=== PATIENT | female | born 1970 | race Caucasian/White ===

== ENCOUNTER → 2016-09-06 | Outpatient (CLI) | payer BC ==
[2016-09-09 16:56] LABS: O&P GIARDIA AG NOT DETECTED (NOT DETECTED)
== END | disposition home or self-care (01) ==
LOC: C.LABSPEC 15:34
PROVIDERS: ATTEND Family Medicine
DX: R19.7 Diarrhea, unspecified (principal)

== ENCOUNTER → 2016-09-09 | Outpatient (CLI) | payer BC | END | disposition home or self-care (01) | LOC: C.PAPS 14:34 | PROVIDERS: ATTEND Obstetrics & Gynecology | DX: Z01.419 Encounter for gynecological examination (general) (routine) without abnormal findings (principal) ==

== ENCOUNTER → 2017-02-04 | Outpatient (CLI) | payer BC ==
--- NOTE | 2017-02-05 13:57 | MAMMOGRAPHY REPORT ---
BILATERAL DIGITAL SCREENING MAMMOGRAM TOMOSYNTHESIS WITH CAD: 02/04/2017 CLINICAL HISTORY: Routine screening. Patient has no complaints. TECHNIQUE: Breast tomosynthesis in addition to standard 2D mammography was performed. Current study was also evaluated with a Computer Aided Detection (CAD) system. COMPARISON: Comparison is made to exams dated: 02/04/2016 mammogram, 08/17/2014 mammogram, and 06/13/20 13 mammogram - [facility]. BREAST COMPOSITION: The tissue of both breasts is extremely dense, which lowers the sensitivity of m ammography. FINDINGS: Circumscribed masses diffusely scattered in both breasts are best appreciated on the tomos ynthesis images. There are punctate benign-appearing microcalcifications bilaterally, stable compare d to prior mammograms. No suspicious spiculated or irregular mass, architectural distortion or clust er of new, suspicious microcalcifications is seen. IMPRESSION: ACR BI-RADS CATEGORY 1: NEGATIVE There is no mammographic evidence of malignancy. A 1 year screening mammogram is recommended. The pa tient will receive written notification of the results. Approximately 10% of breast cancers are not detected with mammography. A negative mammographic report should not delay biopsy if a clinically suggestive mass is present. Catie Reyes M.D. ay/:02/04/2017 16:13:54 Tablet Machine Operator: Ania RAO(Edil)(Vanna)(BD), [facility] letter sent: Normal 1/2 BI-RADS Code: ACR BI-RADS Category 1: Negative
== END | disposition home or self-care (01) ==
LOC: C.MAMM 14:00
PROVIDERS: ATTEND Obstetrics & Gynecology
DX: Z12.31 Encounter for screening mammogram for malignant neoplasm of breast (principal)

== ENCOUNTER 2019-06-21 15:56 | Observation (INO) ==
[2019-06-21] MEDS ORDERED: SODIUM CHLORIDE 0.9% 1000ML 2,000 ML IV ONE (16:19)
[2019-06-21] MEDS ORDERED: ACETAMINOPHEN 325 MG TAB PO STA (16:19)
--- NOTE | 2019-06-21 16:33 | XRay Report ---
XR chest 1V portable CLINICAL HISTORY: 49 years-old Female presenting with SEPSIS. TECHNIQUE: Portable upright AP view of the chest was obtained. COMPARISON: None. FINDINGS: Cardiomediastinal silhouette normal. Retrocardiac opacity. No large effusion or pneumothorax. Osseous structures normal. Upper abdomen normal. IMPRESSION: 1. Retrocardiac infiltrate in the left lower lobe consistent with pneumonia. This should be followed to resolution to ensure the absence of an underlying neoplasm. ACT 112: Negative or not required by law. Electronically signed by: Arsh Piña M.D. 06/21/2019 4:32 PM
[2019-06-21 17:18] LABS: Basophils # (auto) 0.01 K/uL (0-0.2); Basophils % (auto) 0.1 %; Hematocrit (blood only) 37.4 % (37-47); Hemoglobin 11.9 g/dL (12.0-16.0); Immature Granulocytes # (auto) 0.03 K/uL (0.00-0.02); Immature Granulocytes % (auto) 0.2 %; Lymphocytes # (auto) 0.25 K/uL (1.2-3.4); Lymphocytes % (auto) 1.8 %; Mean Corpuscular Hemoglobin 24.5 pg (25-34); Mean Corpuscular Hgb Conc 31.8 g/dL (32-36); Mean Corpuscular Volume 77.1 fL (80-100); Mean Platelet Volume 11.1 fL (7.4-10.4); Monocytes # (auto) 0.41 K/uL (0.11-0.59); Monocytes % (auto) 2.9 %; Neutrophils # (auto) 13.42 K/uL (1.4-6.5); Platelet Count 153 K/uL (130-400); RDW Coefficient of Variation 13.6 % (11.5-14.5); RDW Standard Deviation 38.5 fL (36.4-46.3); Red Blood Count 4.85 M/uL (4.2-5.4); White Blood Count 14.12 K/uL (4.8-10.8)
[2019-06-21] MEDS ORDERED: cefTRIAXone SODIUM 1,000 MG/50 ML BAG IV STA (17:18)
[2019-06-21] MEDS ORDERED: AZITHROMYCIN 250 MG TAB PO ONE (17:18)
[2019-06-21 17:27] LABS: Partial Thromboplastin Ratio 0.9; Partial Thromboplastin Time 23.8 Seconds (21.0-31.0); Prothrombin Time 10.4 Seconds (9.0-12.0)
[2019-06-21 17:35] LABS: Alanine Aminotransferase 22 U/L (12-78); Albumin Level 3.2 gm/dl (3.4-5.0); Aspartate Aminotransferase 21 U/L (15-37); BUN Creatinine Ratio 10.7 (10-20); Blood Urea Nitrogen 12 mg/dl (7-18); Calcium 8.5 mg/dl (8.5-10.1); Carbon Dioxide 19 mmol/L (21-32); Chloride 106 mmol/L (98-107); Creatinine Clr Calc Pharmacy 74.7 ml/min; Est GFR (African American) 65.4; Est GFR (Non-African American) 56.4; Glucose 115 mg/dl (70-99); Magnesium 1.6 mg/dl (1.8-2.4); Potassium 3.9 mmol/L (3.5-5.1); Sodium 135 mmol/L (136-145)
[2019-06-21 17:51] LABS: Albumin Globulin Ratio 0.9 (0.9-2); Alkaline Phosphatase 50 U/L (45-117); Bilirubin,Total 0.5 mg/dl (0.2-1); Globulin 3.6 gm/dl (2.5-4.0); Total Protein 6.8 gm/dl (6.4-8.2); Troponin I < 0.015 ng/ml (0-0.045)
[2019-06-21 18:23] LABS: Appearance Urine Clear (Clear); Bilirubin Urine Negative (Negative); Blood Urine Negative (Negative); Color Urine Yellow; Glucose Urine UA Negative (Negative); Ketones Urine Negative (Negative); Leukocyte Esterase Urine Negative (Negative); Nitrite Urine Negative (Negative); Protein Urine Negative (Negative); Specific Gravity Urine 1.007 (1.000-1.030); Urobilinogen Urine Negative (Negative); pH Urine 5.5 (4.5-7.5)
[2019-06-21] MEDS ORDERED: SODIUM CHLORIDE 0.9% 1000ML 1,000 ML IV ONE (19:44)
--- NOTE | 2019-06-21 20:29 | CT Scan Report ---
CT chest wo con CT DOSE: 282.36 mGy.cm HISTORY: Pain ? pna vs ca TECHNIQUE: Multiaxial CT images of the chest were performed without contrast. A dose lowering techni que was utilized adhering to the principles of ALARA. COMPARISON: Chest series 06/21/2019 FINDINGS: 8 x 10 cm consolidative process left retrocardiac and left lower lobe region. Diagnostic co nsiderations include primarily consolidative infiltrate, although this should be followed to exclude an underlying central obstructing process. Lungs otherwise appear clear. There is minimal atelectatic change right posterior costophrenic angle. No significant mediastinal or hilar adenopathy. Potential minimal infiltrative process right hilar/pe rihilar region. IMPRESSION: 1. Consolidative left lower lobe infiltrate versus the possibility of an underlying mass lesion. 2. Follow-up CT study should be performed at a later date following appropriate treatment. 3. Minimal atelectasis right base. 4. Potential small superimposed infiltrative process right perihilar region ACT 112: Negative or not required by law. The above report was generated using voice recognition software. It may contain grammatical, syntax or spelling errors. Electronically signed by: Ephraim Alfonso M.D. 06/21/2019 8:28 PM
--- NOTE | 2019-06-21 20:38 | Emergency Department Note ---
Entered by Clarissa Pelayo acting as a scribe for Phil Hernandez DO History of Present Illness General Chief complaint: Hypotension Stated complaint: FEVER, LOW BP, ELEVATED PULSE Source: patient History of Present Illness Provider complaint: flu-like symptoms Onset (ago): day(s) 5 Location: left and right Maximum Pain Intensity: 7 Quality: + other (flu-like symptoms) Associated symptoms: + cough, + fever/chills and + other (Positive throat pain; Positive tachycardia; Positive ear pressure; Negative rhinoorhea; Negative dysuria;); no chest pain and no nausea/vomiting Treatments prior to arrival: other (Ibuprofen) The patient, who is a 49 year old female with a medical history of influenza, presents to the Emergency Room with complaints of worsening flu-like symptoms that started this five days ago. The patient states that she was recently marie gnosed with Flu A at a walk in clinic and was given Tamiflu. The patient states that during the onset of her symptoms she started with a fever, chills and cough with no production. The patient states that throughout its course, her fever was intermittent. The patient informs that she is currently experiencing a fever of 104.5 which restarted in the past 24 hours, a cough with production, tachycard ia, throat pain, shortness of breath, and pressure in both of her ears. The patient denies chest pain, rhinorrhea, nausea, vomiting, or dysuria. The patient reports taking an Ibuprofen at 1400. Patient was evaluated by her PCP and referred in as she was found to be hypotensive with systolic pressures in the 80s febrile and tachycardic. Home Medications Home Medications Medication Instructions Recorded Confirmed Type oseltamivir 75 mg PO BID 06/21/19 06/21/19 History Allergies Allergy/AdvReac Type Severity Reaction Status Date / Time Cipro Allergy Severe SHORTNESS Verified 12/14/12 11:10 OF BREATH ciprofloxacin Allergy Severe SHORTNESS Verified 06/21/19 19:07 OF BREATH Iodinated Contrast Media AdvReac Mild DIARRHEA Verified 06/21/19 19:07 Past Med/Surg History Medical History Breast lump Dysmenorrhea History of abnormal cervical Papanicolaou smear Menorrhagia Varicella Surgical History History of ankle surgery History of cryosurgery cervix Family History Grandmother (Maternal) Breast cancer Social History marital status: Feels Safe at Home: Yes Smoking Status: Never smoker Review of Systems See HPI for pertinent positives & negatives. and A total of 10 systems reviewed and were otherwise negative Physical Exam Vital Signs Vital Signs - 24 hr 06/21/19 16:06 06/21/19 16:49 06/21/19 17:02 Temperature 38.1 C H Temperature Source Oral Pulse Rate 122 H 107 H Pulse Rate from SpO2 Sensor 107 H Pulse Rhythm Regular Respiratory Rate 20 17 Respiratory Effort / Characteristics Non-Labored Spontaneous Respiratory Depth Normal Respiratory Pattern Regular Blood Pressure 100/61 109/58 L Blood Pressure Mean 74 74 Blood Pressure Position Sitting Pulse Oximetry 94 96 96 Oxygen Delivery Method Room Air Room Air Sepsis Recent Fever Within 48 Hours Yes Sepsis New/Unexplained Change in Mental Status Yes Sepsis Action Taken by Nursing No Action Required 06/21/19 17:15 06/21/19 17:30 06/21/19 17:45 Temperature Temperature Source Pulse Rate 109 H 104 H 97 H Pulse Rate from SpO2 Sensor 109 H 103 H 98 H Pulse Rhythm Respiratory Rate 18 16 19 Respiratory Effort / Characteristics Respiratory Depth Respiratory Pattern Blood Pressure 123/70 105/62 111/58 L Blood Pressure Mean 89 74 73 Blood Pressure Position Pulse Oximetry 97 96 98 Oxygen Delivery Method Room Air Sepsis Recent Fever Within 48 Hours Sepsis New/Unexplained Change in Mental Status Sepsis Action Taken by Nursing 06/21/19 18:00 06/21/19 18:15 06/21/19 18:30 Temperature Temperature Source Pulse Rate 102 H 103 H 103 H Pulse Rate from SpO2 Sensor 103 H 104 H 105 H Pulse Rhythm Respiratory Rate 22 25 H 20 Respiratory Effort / Characteristics Respiratory Depth Respiratory Pattern Blood Pressure 103/65 113/63 Blood Pressure Mean 73 72 Blood Pressure Position Pulse Oximetry 99 97 97 Oxygen Delivery Method Room Air Sepsis Recent Fever Within 48 Hours Sepsis New/Unexplained Change in Mental Status Sepsis Action Taken by Nursing 06/21/19 18:45 06/21/19 19:00 Temperature Temperature Source Pulse Rate 111 H 101 H Pulse Rate from SpO2 Sensor 101 H Pulse Rhythm Respiratory Rate 19 28 H Respiratory Effort / Characteristics Respiratory Depth Respiratory Pattern Blood Pressure Blood Pressure Mean Blood Pressure Position Pulse Oximetry 95 Oxygen Delivery Method Room Air Room Air Sepsis Recent Fever Within 48 Hours Sepsis New/Unexplained Change in Mental Status Sepsis Action Taken by Nursing GENERAL: alert, sitting up in bed, intermittent cough, talking in full sentences EYE EXAM: normal conjunctiva, OROPHARYNX: no exudate, no erythema, lips, buccal mucosa, and tongue normal and mucous membranes are dry NECK: supple, no nuchal rigidity, no adenopathy, non-tender LUNGS: Mild wheezing in bilateral bases. Normal chest wall mechanics HEART: no murmurs, S1 normal and S2 normal, tachycardic ABDOMEN: abdomen soft, non-tender, normo-active bowel sounds, no masses, no rebound or guarding. BACK: Back is symmetrical on inspection and there is no deformity, no midline tenderness, no CVA tenderness. SKIN: no rashes and no bruising UPPER EXTREMITIES: upper extremities are grossly normal. LOWER EXTREMITIES: No pitting edema. NEURO EXAM: Normal sensorium, cranial nerves II-XII grossly intact, normal speech, no gross weakness of arms, no gross weakness of legs. Course Course ED COURSE: Vital signs were reviewed and showed normotensive The patients medical record was reviewed The above diagnostic studies were performed and reviewed. ED treatments and interventions as stated above. 1614: The patient was evaluated in room C3. A complete history and physical examination was performed. 9: I reassessed the patient and updated them on their results. 6: I reviewed the patient's case with Dr. Arzola, [facility] Hospitalist. He will evaluate the patient for further management. 1940: Upon reevaluation, the patient is resting.I discussed my findings with the patient and she understands and agrees with the treatment plan. Based on the patients age, coexisting illnesses, exam and lab findings the decision to treat as an inpatient was made. The patient remained stable while under my care. The patient will be evaluated for further management. Consultations Consultation #1: I reviewed the patient's case with Dr. Arzola, [facility] Hospitalist. He will evaluate the patient for further management. Time: 19:36 Administered Medications Discontinued Medications Acetaminophen (Tylenol) 650 mg PO NOW STA Stop: 06/21/19 16:20 Last Admin: 06/21/19 16:59 Dose: 650 mg Documented by: [id number] Azithromycin (Zithromax) 500 mg PO NOW ONE Stop: 06/21/19 17:19 Last Admin: 06/21/19 17:27 Dose: 500 mg Documented by: [id number] Sodium Chloride (Nss 1000ml) 2,000 mls @ 999 mls/hr IV .Q2H1M ONE Stop: 06/21/19 18:19 Last Infusion: 06/21/19 19:01 Dose: 0 mls/hr Documented by: [id number] Admin: 06/21/19 16:59 Dose: 999 mls/hr Documented by: [id number] Ceftriaxone Sodium (Rocephin) 1,000 mg in 50 mls @ 100 mls/hr IV NOW STA Stop: 06/21/19 17:47 Last Infusion: 06/21/19 18:02 Dose: 0 mls/hr Documented by: [id number] Admin: 06/21/19 17:28 Dose: 100 mls/hr Documented by: [id number] Medical Decision Making Differential Diagnosis Differential diagnoses includes but is not limited to acute coronary syndrome, myocardial infarction, pericarditis, pulmonary embolus, aortic dissection, pneumonia, pneumothorax, musculoskeletal, shingles, esophageal. Medical Records Attestation: I reviewed the patient's medical records. Home Medications Current Medication List: was personally reviewed by me Laboratory Data Attestation: I reviewed the patient's lab results. Result diagrams: 06/21/19 16:57 06/21/19 16:57 Lab Results 06/21/19 06/21/19 06/21/19 Range/Units 16:57 16:57 16:57 WBC 14.12 H (4.8-10.8) K/uL RBC 4.85 (4.2-5.4) M/uL Hgb 11.9 L (12.0-16.0) g/dL Hct 37.4 (37-47) % MCV 77.1 L (80-100) fL MCH 24.5 L (25-34) pg MCHC 31.8 L (32-36) g/dL RDW Std Deviation 38.5 (36.4-46.3) fL RDW Coeff of Bladimir 13.6 (11.5-14.5) % Plt Count 153 (130-400) K/uL MPV 11.1 H (7.4-10.4) fL Immature Gran % (Auto) 0.2 % Neut % (Auto) 95.0 % Lymph % (Auto) 1.8 % Morrison % (Auto) 2.9 % Eos % (Auto) 0.0 % Baso % (Auto) 0.1 % Immature Gran # (Auto) 0.03 H (0.00-0.02) K/uL Neut # (Auto) 13.42 H (1.4-6.5) K/uL Lymph # (Auto) 0.25 L (1.2-3.4) K/uL Morrison # (Auto) 0.41 (0.11-0.59) K/uL Eos # (Auto) 0.00 (0-0.5) K/uL Baso # (Auto) 0.01 (0-0.2) K/uL PT 10.4 (9.0-12.0) Seconds INR 1.0 (0.9-1.1) APTT 23.8 (21.0-31.0) Seconds PTT Ratio 0.9 Sodium 135 L (136-145) mmol/L Potassium 3.9 (3.5-5.1) mmol/L Chloride 106 (98-107) mmol/L Carbon Dioxide 19 L (21-32) mmol/L Anion Gap 10.0 (3-11) BUN 12 (7-18) mg/dl Creatinine 1.14 (0.6-1.2) mg/dl Est Cr Clr Drug Dosing 74.7 ml/min Est GFR ( Amer) 65.4 Est GFR (Non-Af Amer) 56.4 BUN/Creatinine Ratio 10.7 (10-20) Glucose 115 H (70-99) mg/dl Lactate (0.4-2.0) mmol/L Calcium 8.5 (8.5-10.1) mg/dl Magnesium 1.6 L (1.8-2.4) mg/dl Total Bilirubin 0.5 (0.2-1) mg/dl AST 21 (15-37) U/L ALT 22 (12-78) U/L Alkaline Phosphatase 50 (45-117) U/L Troponin I < 0.015 (0-0.045) ng/ml Total Protein 6.8 (6.4-8.2) gm/dl Albumin 3.2 L (3.4-5.0) gm/dl Globulin 3.6 (2.5-4.0) gm/dl Albumin/Globulin Ratio 0.9 (0.9-2) Urine Color Urine Appearance (Clear) Urine pH (4.5-7.5) Ur Specific Winnie (1.000-1.030) Urine Protein (Negative) Urine Glucose (UA) (Negative) Urine Ketones (Negative) Urine Blood (Negative) Urine Nitrite (Negative) Urine Bilirubin (Negative) Urine Urobilinogen (Negative) Ur Leukocyte Esterase (Negative) 06/21/19 06/21/19 06/21/19 Range/Units 16:57 18:06 Unknown WBC (4.8-10.8) K/uL RBC (4.2-5.4) M/uL Hgb (12.0-16.0) g/dL Hct (37-47) % MCV (80-100) fL MCH (25-34) pg MCHC (32-36) g/dL RDW Std Deviation (36.4-46.3) fL RDW Coeff of Bladimir (11.5-14.5) % Plt Count (130-400) K/uL MPV (7.4-10.4) fL Immature Gran % (Auto) % Neut % (Auto) % Lymph % (Auto) % Morrison % (Auto) % Eos % (Auto) % Baso % (Auto) % Immature Gran # (Auto) (0.00-0.02) K/uL Neut # (Auto) (1.4-6.5) K/uL Lymph # (Auto) (1.2-3.4) K/uL Morrison # (Auto) (0.11-0.59) K/uL Eos # (Auto) (0-0.5) K/uL Baso # (Auto) (0-0.2) K/uL PT (9.0-12.0) Seconds INR (0.9-1.1) APTT (21.0-31.0) Seconds PTT Ratio Sodium (136-145) mmol/L Potassium (3.5-5.1) mmol/L Chloride (98-107) mmol/L Carbon Dioxide (21-32) mmol/L Anion Gap (3-11) BUN (7-18) mg/dl Creatinine (0.6-1.2) mg/dl Est Cr Clr Drug Dosing ml/min Est GFR ( Amer) Est GFR (Non-Af Amer) BUN/Creatinine Ratio (10-20) Glucose (70-99) mg/dl Lactate 3.2 H* 1.5 (0.4-2.0) mmol/L Calcium (8.5-10.1) mg/dl Magnesium (1.8-2.4) mg/dl Total Bilirubin (0.2-1) mg/dl AST (15-37) U/L ALT (12-78) U/L Alkaline Phosphatase (45-117) U/L Troponin I (0-0.045) ng/ml Total Protein (6.4-8.2) gm/dl Albumin (3.4-5.0) gm/dl Globulin (2.5-4.0) gm/dl Albumin/Globulin Ratio (0.9-2) Urine Color Yellow Urine Appearance Clear (Clear) Urine pH 5.5 (4.5-7.5) Ur Specific Winnie 1.007 (1.000-1.030) Urine Protein Negative (Negative) Urine Glucose (UA) Negative (Negative) Urine Ketones Negative (Negative) Urine Blood Negative (Negative) Urine Nitrite Negative (Negative) Urine Bilirubin Negative (Negative) Urine Urobilinogen Negative (Negative) Ur Leukocyte Esterase Negative (Negative) Imaging Data Radiologist's Impression: Radiology results as stated below per my review and the radiologist's interpretation: XR chest 1V portable CLINICAL HISTORY: 49 years-old Female presenting with SEPSIS. TECHNIQUE: Portable upright AP view of the chest was obtained. COMPARISON: None. FINDINGS: Cardiomediastinal silhouette normal. Retrocardiac opacity. No large effusion or pneumothorax. Osseous structures normal. Upper abdomen normal. IMPRESSION: 1. Retrocardiac infiltrate in the left lower lobe consistent with pneumonia. This should be followed to resolution to ensure the absence of an underlying neoplasm. ACT 112: Negative or not required by law. Electronically signed by: Arsh Piña M.D. 06/21/2019 4:32 PM ECG Data Attestation: I personally reviewed and interpreted this ECG as follows: Indication: + chest pain Rate (beats per minute): 111 Rhythm: + sinus rhythm ECG Intervals/blocks: + First degree AV block ECG ST segments: + ST depression (Inferior) ECG Findings: + PVCs and + Other (anterior, lateral and high lateral with elevation AVR) Blood Pressure Blood Pressure Findings: Normal blood pressure MDM Narrative The patient, who is a 49 year old female with a medical history of menorrhagia, breast lump, and dysmenorrhea, presents to the Emergency Room with complaints of worsening flu-like symptoms that started this five days ago. Patient was diagnosed with a flu will 5 days ago. Her fevers have been improving but they restarted again in the past 24 hours with worsening cough shortness of breath and shaking chills. She was seen by PCP and found to be hypotensive and febrile and sent into the ER. Upon presentation IV was established blood work was obtained. Labs show a leukocytosis of 14,000 mild anemia 11.9. INR was unremarkable. BMP along with LFTs bilirubin and troponin was unremarkable. Initial lactate was elevated at 3.2. Influenza was not repeated. UA was negative. Chest x-ray without focal infiltrate. Patient was given azithromycin and IV Rocephin along with 2 L IV fluids. She was updated bedside. EKG was n ondiagnostic. She was discussed with the hospitalist for admission. Following their evaluation they requested a CT of the chest which was performed and did show consolidative change versus underlying neoplasm. They will follow this up. Impression & Plan Sepsis, PNA (pneumonia), Elevated LDH, Leukocytosis Discharge Plan Visit Data Chief Complaint: Hypotension Stated Complaint: FEVER, LOW BP, ELEVATED PULSE ED Provider: Phil Hernandez Discharge Problem: Sepsis, PNA (pneumonia), Elevated LDH, Leukocytosis Patient Disposition: Being Evaluated by Hospitalist Forms Stand Alone Forms: My [facility] [place] Prescriptions Prescriptions: No Action oseltamivir 75 mg capsule 75 mg PO BID RF: 0 Referrals Referrals: Kelton Maier DO [Primary Care Provider] - Discharge Problem: Sepsis Qualifiers: Sepsis type: sepsis due to unspecified organism Sepsis acute organ dysfunction status: unspecified Qualified Code(s): A41.9 - Sepsis, unspecified organism PNA (pneumonia) Qualifiers: Pneumonia type: due to unspecified organism Laterality: unspecified laterality Lung location: unspecified part of lung Qualified Code(s): J18.9 - Pneumonia, unspecified organism Leukocytosis Qualifiers: Leukocytosis type: unspecified Qualified Code(s): D72.829 - Elevated white blo od cell count, unspecified The scribe's documentation has been prepared under my direction and personally reviewed by me in its entirety. I confirm that the note above accurately reflects all work, treatment, procedures, and medical decision making performed by me.
--- NOTE | 2019-06-21 20:45 | History & Physical Report ---
Date of Service June 21, 2019 Assessment & Plan (1) Sepsis: Sepsis secondary to influenza A and secondary bacterial pneumonia Present on Admission?: Yes (2) PNA (pneumonia): Left lower lobe consolidation, especially prominent on CT. Continue ceftriaxone 1 g IV daily and azithromycin 500 mg IV daily begun in the ED. Add Solu-Medrol 40 mg IV every 8 hours. DuoNebs. Will need to follow-up CT to verify resolution. Radiology brings up the possibility of an underlying neoplasm. Present on Admission?: Yes (3) Influenza A: Continue Tamiflu 75 mg p.o. twice daily x5 full days Present on Admission?: Yes History of Present Illness Chief Complaint: The patient presents to the emergency department with worsening symptoms of influenza A, that initially began 5 days ago, but worsened over the past 24 hours, in spite of being prescribed Tamiflu at a walk-in clinic. Primary Care Provider: Kelton Maier DO The patient is a 49-year-old female with worsening flulike symptoms that initially began 5 days ago, was more recently diagnosed with influenza A at a walk-in clinic, and and was prescribed Tamiflu. She reports that she had been starting to feel somewhat improved from her initial fever, chills and cough symptoms, however, over the past 24 hours, she reports she had increasing productive cough, and developed a temperature to 104.5 today. Her most significant symptom at this time, is left lower lateral and posterior chest pain. She was seen by her PCP today, was found to be hypotensive with systolic blood pressure in the 80s, and was referred to the emergency department. Allergies Allergy/AdvReac Type Severity Reaction Status Date / Time Cipro Allergy Severe SHORTNESS Verified 12/14/12 11:10 OF BREATH ciprofloxacin Allergy Severe SHORTNESS Verified 06/21/19 19:07 OF BREATH Iodinated Contrast Media AdvReac Mild DIARRHEA Verified 06/21/19 19:07 Home Medications Home Medications Medication Instructions Recorded Confirmed Type oseltamivir 75 mg PO BID 06/21/19 06/21/19 History Past Med/Surg History Medical History Breast lump Dysmenorrhea History of abnormal cervical Papanicolaou smear Menorrhagia Varicella Surgical History History of ankle surgery History of cryosurgery cervix Family History Grandmother (Maternal) Breast cancer Social History Preferred Language: Albanian Beliefs That Will Affect Care: None marital status: Current Living Situation: Family Other Information That Helps Us Care for You: No Feels Safe at Home: Yes Safety Concerns: Feels Safe At This Time Smoking Status: Never smoker Hx Alcohol Use: Yes Hx Substance Use: No Review of Systems 2 Review of Systems: The patient denies chest pain, palpitations, lower extremity swelling, chills, sweats, weight change, fatigue, nausea, vomiting, diarrhea , constipation, abdominal pain, pelvic pain, Blood in urine or stool, dysuria, urinary frequency or urgency, lightheadedness, dizziness, headache, memory loss, loss of consciousness, rash, abnormal bruising or bleeding, imbalance, focal or generalized weakness, numbness or tingling in arms or legs, back or neck pain, or night sweats. The review of systems is otherwise negative other than for that already noted above, and at least 10 systems have been reviewed. Physical Exam Physical Exam: The patient is awake, alert and oriented 3, well developed and well nourished, normocephalic and atraumatic, lying in bed and in no acute distress. HEENT--PERRL, EOMI, mucous membranes and oropharynx dry. Neck--supple. No JVD. No bruits. Thyroid normal, trachea midline, no adenopathy. Heart--normal S1 and S2. No murmurs, rubs or gallops. Lungs--decreased breath sounds left base. No respiratory distress, no accessory muscle use. Abdomen--normal bowel sounds and soft. Nontender. Nondistended, no hernias or masses, no organomegaly. Extremities--no cyanosis or clubbing. No edema. There are good distal pulses b/l. Dermatologic--normal skin turgor, normal color, no abnormal lymph nodes, no rash. Neurologic--cranial nerves II through XII grossly intact. Rheumatologic--normal range of motion. Psychiatric--normal affect. Results & Data Vital Signs (Past 12 Hours) Vital Signs Temp Pulse Resp BP Pulse Ox 06/21/19 19:00 101 H 28 H 95 06/21/19 18:45 111 H 19 06/21/19 18:30 103 H 20 97 06/21/19 18:15 103 H 25 H 113/63 97 06/21/19 18:00 102 H 22 103/65 99 06/21/19 17:45 97 H 19 111/58 L 98 06/21/19 17:30 104 H 16 105/62 96 06/21/19 17:15 109 H 18 123/70 97 06/21/19 17:02 107 H 17 109/58 L 96 06/21/19 16:49 96 06/21/19 16:06 100.6 F H 122 H 20 100/61 94 Laboratory Results Laboratory Results WBC 14.12 K/uL (4.8-10.8) H 06/21/19 16:57 RBC 4.85 M/uL (4.2-5.4) 06/21/19 16:57 Hgb 11.9 g/dL (12.0-16.0) L 06/21/19 16:57 Hct 37.4 % (37-47) 06/21/19 16:57 MCV 77.1 fL (80-100) L 06/21/19 16:57 MCH 24.5 pg (25-34) L 06/21/19 16:57 MCHC 31.8 g/dL (32-36) L 06/21/19 16:57 RDW Std Deviation 38.5 fL (36.4-46.3) 06/21/19 16:57 RDW Coeff of Bladimir 13.6 % (11.5-14.5) 06/21/19 16:57 Plt Count 153 K/uL (130-400) 06/21/19 16:57 MPV 11.1 fL (7.4-10.4) H 06/21/19 16:57 Immature Gran % (Auto) 0.2 % 06/21/19 16:57 Neut % (Auto) 95.0 % 06/21/19 16:57 Lymph % (Auto) 1.8 % 06/21/19 16:57 [place] % (Auto) 2.9 % 06/21/19 16:57 Eos % (Auto) 0.0 % 06/21/19 16:57 Baso % (Auto) 0.1 % 06/21/19 16:57 Immature Gran # (Auto) 0.03 K/uL (0.00-0.02) H 06/21/19 16:57 Neut # (Auto) 13.42 K/uL (1.4-6.5) H 06/21/19 16:57 Lymph # (Auto) 0.25 K/uL (1.2-3.4) L 06/21/19 16:57 [place] # (Auto) 0.41 K/uL (0.11-0.59) 06/21/19 16:57 Eos # (Auto) 0.00 K/uL (0-0.5) 06/21/19 16:57 Baso # (Auto) 0.01 K/uL (0-0.2) 06/21/19 16:57 PT 10.4 Seconds (9.0-12.0) 06/21/19 16:57 INR 1.0 (0.9-1.1) 06/21/19 16:57 APTT 23.8 Seconds (21.0-31.0) 06/21/19 16:57 PTT Ratio 0.9 06/21/19 16:57 Sodium 135 mmol/L (136-145) L 06/21/19 16:57 Potassium 3.9 mmol/L (3.5-5.1) 06/21/19 16:57 Chloride 106 mmol/L (98-107) 06/21/19 16:57 Carbon Dioxide 19 mmol/L (21-32) L 06/21/19 16:57 Anion Gap 10.0 (3-11) 06/21/19 16:57 BUN 12 mg/dl (7-18) 06/21/19 16:57 Creatinine 1.14 mg/dl (0.6-1.2) 06/21/19 16:57 Est Cr Clr Drug Dosing 74.7 ml/min 06/21/19 16:57 Est GFR ( Amer) 65.4 06/21/19 16:57 Est GFR (Non-Af Amer) 56.4 06/21/19 16:57 BUN/Creatinine Ratio 10.7 (10-20) 06/21/19 16:57 Glucose 115 mg/dl (70-99) H 06/21/19 16:57 Lactate 1.5 mmol/L (0.4-2.0) 06/21/19 18:06 Calcium 8.5 mg/dl (8.5-10.1) 06/21/19 16:57 Magnesium 1.6 mg/dl (1.8-2.4) L 06/21/19 16:57 Total Bilirubin 0.5 mg/dl (0.2-1) 06/21/19 16:57 AST 21 U/L (15-37) 06/21/19 16:57 ALT 22 U/L (12-78) 06/21/19 16:57 Alkaline Phosphatase 50 U/L (45-117) 06/21/19 16:57 Troponin I < 0.015 ng/ml (0-0.045) 06/21/19 16:57 Total Protein 6.8 gm/dl (6.4-8.2) 06/21/19 16:57 Albumin 3.2 gm/dl (3.4-5.0) L 06/21/19 16:57 Globulin 3.6 gm/dl (2.5-4.0) 06/21/19 16:57 Albumin/Globulin Ratio 0.9 (0.9-2) 06/21/19 16:57 Urine Color Yellow 06/21/19 Unknown Urine Appearance Clear (Clear) 06/21/19 Unknown Urine pH 5.5 (4.5-7.5) 06/21/19 Unknown Ur Specific [place] 1.007 (1.000-1.030) 06/21/19 Unknown Urine Protein Negative (Negative) 06/21/19 Unknown Urine Glucose (UA) Negative (Negative) 06/21/19 Unknown Urine Ketones Negative (Negative) 06/21/19 Unknown Urine Blood Negative (Negative) 06/21/19 Unknown Urine Nitrite Negative (Negative) 06/21/19 Unknown Urine Bilirubin Negative (Negative) 06/21/19 Unknown Urine Urobilinogen Negative (Negative) 06/21/19 Unknown Ur Leukocyte Esterase Negative (Negative) 06/21/19 Unknown [phone] Report Patient: ANTHONY KELSEY Date: 06/21/19 MR#: [id number]: [address] Acct ID:[id number]: Date: [address] Zip: [place] [address] Age: 49Location: ED Sex: F Room/Bed: Att Phy:Diagnosis: FEVER, LOW BP, ELEVATED PULSE Mihaela Phy: Kelton Maier D.O.Service Date: 06/21/19 Fam Phy:Interpreting Phy: Arsh Piña MD Admit Phy: Ordering Phy: Phil Hernandez DO cc: ~ XR chest 1V portable CLINICAL HISTORY: 49 years-old Female presenting with SEPSIS. TECHNIQUE: Portable upright AP view of the chest was obtained. COMPARISON: None. FINDINGS: Cardiomediastinal silhouette normal. Retrocardiac opacity. No large effusion or pneumothorax. Osseous structures normal. Upper abdomen normal. IMPRESSION: 1. Retrocardiac infiltrate in the left lower lobe consistent with pneumonia. This should be followed to resolution to ensure the absence of an underlying neoplasm. ACT 112: Negative or not required by law. Electronically signed by: Arsh Piña M.D. 06/21/2019 4:32 PM Dictated: 06/21/19 1631 Transcribed: 06/21/19 1631 [place], [place] [phone] CT Scan Report Patient: ANTHONY KELSEY Date: 06/21/19 MR#: [id number]: [address] Acct ID:[id number]: [facility] [address] [facility] Zip[facility] [place] [address] Age: 49Location: ED Sex: F Room/Bed: Att Phy:Diagnosis: FEVER, LOW BP, ELEVATED PULSE Mihaela Phy: Kelton Maier D.O.Service Date: 06/21/19 [facility] Phy:Interpreting Phy: Ephraim Alfonso MD Admit Phy: Ordering Phy: Phil Hernandez DO cc: ~ CT chest wo con CT DOSE: 282.36 mGy.cm HISTORY: Pain ? pna vs ca TECHNIQUE: Multiaxial CT images of the chest were performed without contrast. A dose lowering technique was utilized adhering to the principles of ALARA. COMPARISON: Chest series 06/21/2019 FINDINGS: 8 x 10 cm consolidative process left retrocardiac and left lower lobe region. Diagnostic considerations include primarily consolidative infiltrate, although this should be followed to exclude an underlying central obstructing process. Lungs otherwise appear clear. There is minimal atelectatic change right posterior costophrenic angle. No significant mediastinal or hilar adenopathy. Potential minimal infiltrative process right hilar/perihilar region. IMPRESSION: 1. Consolidative left lower lobe infiltrate versus the possibility of an underlying mass lesion. 2. Follow-up CT study should be performed at a later date following appropriate treatment. 3. Minimal atelectasis right base. 4. Potential small superimposed infiltrative process right perihilar region ACT 112: Negative or not required by law. The above report was generated using voice recognition software. It may contain grammatical, syntax or spelling errors. Electronically signed by: Ephraim Alfonso M.D. 06/21/2019 8:28 PM Dictated: 06/21/192023 Transcribed: 06/21/192023 Code Status & VTE Plan Code Status Full code VTE Prophylaxis Plan VTE Prophylaxis will be ordered: Yes PG Care Time/CCT Total # of Minutes Spent Total Time Spent with Patient: Total time spent is greater than 50% in coordination of care (as documented) at patient's floor/unit and/or counseling patient: (1) Sepsis Sepsis acute organ dysfunction status: unspecified Sepsis type: sepsis due to unspecified organism Qualified Code(s): A41.9 - Sepsis, unspecified organism (2) PNA (pneumonia) Laterality: unspecified laterality Lung location: unspecified part of lung Pneumonia type: due to unspecified organism Qualified Code(s): J18.9 - Pneumonia, unspecified organism
[2019-06-21] MEDS ORDERED: ACETAMINOPHEN 325 MG TAB PO PRN (22:05)
[2019-06-21] MEDS ORDERED: ONDANSETRON INJ 2 MG/ML 2 ML VIAL IV PRN (22:05)
[2019-06-21] MEDS ORDERED: ALBUT/IPRATROP 3MG/0.5MG NEB 3 ML VIAL NEB PRN (22:05)
[2019-06-21] MEDS ORDERED: cefTRIAXone SODIUM 1,000 MG in DEXTROSE 5% 50 ML IV SCH (22:05)
[2019-06-21] MEDS: methylPREDNISolone 40 MG in SYRINGE 0 ML IV SCH (23:47)
[2019-06-21] MEDS: OSELTAMIVIR PHOSPHATE 75 MG CAP PO SCH (23:48)
[2019-06-22] MEDS: methylPREDNISolone 40 MG in SYRINGE 0 ML IV SCH ×3 (06:09→21:45)
[2019-06-22] MEDS: OSELTAMIVIR PHOSPHATE 75 MG CAP PO SCH ×2 (08:44→19:20)
[2019-06-22] MEDS: MAGNESIUM SULFATE / D5W 1 GM/100 ML BAG IV SCH ×2 (08:44→09:52)
--- NOTE | 2019-06-22 09:32 | Hospitalist Progress Note ---
Date of Service June 22, 2019 Assessment & Plan (1) Sepsis: 49 yo F no significant PMHx admitted for sepsis secondary to superimposed bacterial pneumonia in the setting of diagnosed influenza A. Sepsis: - Initially sepsis secondary to influenza A and secondary bacterial pneumonia - Lactate on admission 3.2 -> 1.5 today. Pt currently normotensive, afebrile. - No longer meets sepsis criteria. Continue to follow CBC to trend leukocytosis. Community acquired pneumonia: - Left lower lobe consolidation, especially prominent on CT. - Continue ceftriaxone 1 g IV daily and azithromycin 500 mg IV daily. - Add Solu-Medrol 40 mg IV every 8 hours. - DuoNebs q2h PRN. - Will need to follow-up CT in about 2 months to verify resolution and ensure findings consistent with infectious process. Influenza A: - Pt on droplet precautions. - Continue Tamiflu 75 mg p.o. twice daily x5 full days; will complete today. - Supportive care. Code Status: FULL CODE FEN/GI: normal diet DVT ppx: adlib as tolerated Dispo: med/surg; anticipate discharge tomorrow (2) Influenza A: (3) PNA (pneumonia): Supervising Physician Co-Signing Physician Notes I personally examined the patient and verified all han points of history and exam, discussed case, and agree with decision making with Dr Aguirre. Feeling better. Breathing better. Still not back to normal. But is improving. She notes a little bit of left lower back pain. Vitals noted, in general she is fatigued appearing but otherwise in no distress. HEENT normocephalic atraumatic mucous membranes are moist. Breathing is unlabored, her lungs are diminished base left more than right but no rales rhonchi or wheezes anywhere no accessory muscle use good effort. Neuro shows no focal deficits. Influenza complicated by secondary bacterial pneumonia with sepsis present on admissionall improving. Continue Zithromax Rocephin. Stable for transfer to medical. Anticipate hopefully doing well enough to get home tomorrow. Otherwise as above. Subjective Pt without acute events overnight. Decrease in SOB and needing supplemental O2 infrequently. Some wheezing and cough still. No fevers or chills, no chest pain or palpitations. Denies history of smoking. Started Tamiflu 4 days ago. Review of Systems Constitutional: no fever, no chills and no malaise Respiratory: + cough and + dyspnea (minimal, better than yesterday) Cardiovascular: no chest pain, no palpitations and no edema Gastrointestinal: no abdominal pain, no constipation and no diarrhea/loose stools Genitourinary: no dysuria and no hematuria Physical Exam Constitutional: WD/WN, vitals as above Respiratory: normal respiratory effort decreased air movement at left lung base, no wheezes Cardiovascular: RRR, no murmur, no edema Gastrointestinal (Abdomen): normal bowel sounds, soft, nontender, no hepatosplenomegaly Skin: no rashes, warm and dry Psychiatric: A+Ox3, euthymic affect Results & Data Vital Signs (Past 12 Hours) Vital Signs Temp Pulse Pulse Resp BP Pulse Ox 06/22/19 07:40 37.2 C 84 20 96/61 L 96 06/22/19 07:16 87 06/22/19 04:03 37.0 C 89 17 98/63 L 96 06/22/19 00:00 102 H 06/21/19 23:41 38.2 C H 102 H 18 104/65 94 06/21/19 22:00 92 H 06/21/19 21:46 37.0 C 96 H 18 125/68 96 Laboratory Results Laboratory Results - last 24 hr 06/21/19 06/21/19 06/21/19 16:57 16:57 16:57 WBC 14.12 H RBC 4.85 Hgb 11.9 L Hct 37.4 MCV 77.1 L MCH 24.5 L MCHC 31.8 L RDW Std Deviation 38.5 RDW Coeff of Bladimir 13.6 Plt Count 153 MPV 11.1 H Immature Gran % (Auto) 0.2 Neut % (Auto) 95.0 Lymph % (Auto) 1.8 [place] % (Auto) 2.9 Eos % (Auto) 0.0 Baso % (Auto) 0.1 Immature Gran # (Auto) 0.03 H Neut # (Auto) 13.42 H Lymph # (Auto) 0.25 L [place] # (Auto) 0.41 Eos # (Auto) 0.00 Baso # (Auto) 0.01 PT 10.4 INR 1.0 APTT 23.8 PTT Ratio 0.9 Sodium 135 L Potassium 3.9 Chloride 106 Carbon Dioxide 19 L Anion Gap 10.0 BUN 12 Creatinine 1.14 Est Cr Clr Drug Dosing 74.7 Est GFR ( Amer) 65.4 Est GFR (Non-Af Amer) 56.4 BUN/Creatinine Ratio 10.7 Glucose 115 H Lactate Calcium 8.5 Magnesium 1.6 L Total Bilirubin 0.5 AST 21 ALT 22 Alkaline Phosphatase 50 Troponin I < 0.015 Total Protein 6.8 Albumin 3.2 L Globulin 3.6 Albumin/Globulin Ratio 0.9 Urine Color Urine Appearance Urine pH Ur Specific [place] Urine Protein Urine Glucose (UA) Urine Ketones Urine Blood Urine Nitrite Urine Bilirubin Urine Urobilinogen Ur Leukocyte Esterase 06/21/19 06/21/19 06/21/19 16:57 18:06 Unknown WBC RBC Hgb Hct MCV MCH MCHC RDW Std Deviation RDW Coeff of Bladimir Plt Count MPV Immature Gran % (Auto) Neut % (Auto) Lymph % (Auto) [place] % (Auto) Eos % (Auto) Baso % (Auto) Immature Gran # (Auto) Neut # (Auto) Lymph # (Auto) [place] # (Auto) Eos # (Auto) Baso # (Auto) PT INR APTT PTT Ratio Sodium Potassium Chloride Carbon Dioxide Anion Gap BUN Creatinine Est Cr Clr Drug Dosing Est GFR ( Amer) Est GFR (Non-Af Amer) BUN/Creatinine Ratio Glucose Lactate 3.2 H* 1.5 Calcium Magnesium Total Bilirubin AST ALT Alkaline Phosphatase Troponin I Total Protein Albumin Globulin Albumin/Globulin Ratio Urine Color Yellow Urine Appearance Clear Urine pH 5.5 Ur Specific [place] 1.007 Urine Protein Negative Urine Glucose (UA) Negative Urine Ketones Negative Urine Blood Negative Urine Nitrite Negative Urine Bilirubin Negative Urine Urobilinogen Negative Ur Leukocyte Esterase Negative Medications Administered Current Medications Acetaminophen (Tylenol) 650 mg PO Q4H PRN PRN Reason: Pain or Fever Stop: 07/21/19 22:04 Last Admin: 06/21/19 23:47 Dose: 650 mg Documented by: Albuterol (Duoneb) 3 ml NEB Q2H PRN PRN Reason: dyspnea Stop: 07/21/19 22:04 Azithromycin 500 mg/ Dextrose 255 mls @ 125 mls/hr IV DAILY@1600 COUNT INCLUDES THE [facility] Stop: 06/27/19 18:03 Methylprednisolone 40 mg/ (Syringe) 0.64 mls @ 1.5 mls/min IV Q8H COUNT INCLUDES THE [facility] Stop: 07/21/19 22:29 Last Admin: 06/22/19 06:09 Dose: 1.5 mls/min Documented by: Ceftriaxone Sodium 2,000 mg/ (Dextrose) 70 mls @ 140 mls/hr IV Q24H COUNT INCLUDES THE [facility] Stop: 06/27/19 18:29 Ondansetron HCl (Zofran) 4 mg IV Q6H PRN PRN Reason: Nausea Stop: 07/21/19 22:04 Oseltamivir Phosphate (Tamiflu) 75 mg PO BID COUNT INCLUDES THE [facility]; Protocol Stop: 06/26/19 22:04 Last Admin: 06/22/19 08:44 Dose: 75 mg Documented by: Resident Activity Tracking Resident Involvement: Resident Care Provided Care Provided: Adult Hospital Medicine (1) Sepsis Sepsis acute organ dysfunction status: unspecified Sepsis type: sepsis due to unspecified organism Qualified Code(s): A41.9 - Sepsis, unspecified organism (2) PNA (pneumonia) Laterality: unspecified laterality Lung location: unspecified part of lung Pneumonia type: due to unspecified organism Qualified Code(s): J18.9 - Pneumonia, unspecified organism
--- NOTE | 2019-06-22 10:05 | Electrocardiogram Report ---
Test Reason : Blood Pressure : / mmHG Vent. Rate : 111 BPM Atrial Rate : 111 BPM P-R Int : 140 ms QRS Dur : 076 ms QT Int : 336 ms P-R-T Axes : 002 051 022 degrees QTc Int : 456 ms Sinus tachycardia Otherwise normal ECG No previous ECGs available Confirmed by Mateusz Salinas ([id number]) on 06/22/2019 10:05:24 AM Referred By: REFERRED SELF Confirmed By:Mateusz Salinas
[2019-06-22] MEDS ORDERED: AZITHROMYCIN 500 MG in DEXTROSE 5% 250 ML IV SCH (16:00)
[2019-06-22] MEDS ORDERED: cefTRIAXone SODIUM 2,000 MG in DEXTROSE 5% 50 ML IV SCH (18:00)
--- NOTE | 2019-06-22 18:09 | Billing Data ---
Date of Service June 22, 2019 Coding Level of Care Code 46650 Subseq Hosp Care Lvl 3
[2019-06-23] MEDS: methylPREDNISolone 40 MG in SYRINGE 0 ML IV SCH (06:13)
[2019-06-23] MEDS ORDERED: ALBUT/IPRATROP 3MG/0.5MG NEB 3 ML VIAL NEB STA ×2 (09:45→09:46)
--- NOTE | 2019-06-23 09:48 | Discharge Summary ---
Date of Service June 23, 2019 Admission HPI Per Admitting Provider The patient is a 49-year-old female with worsening flulike symptoms that initially began 5 days ago, was more recently diagnosed with influenza A at a walk-in clinic, and and was prescribed Tamiflu. She reports that she had been starting to feel somewhat improved from her initial fever, chills and cough symptoms, however, over the past 24 hours, she reports she had increasing productive cough, and developed a temperature to 104.5 today. Her most significant symptom at this time, is left lower lateral and posterior chest pain. She was seen by her PCP today, was found to be hypotensive with systolic blood pressure in the 80s, and was referred to the emergency department. Admission Exam Per Admitting Provider The patient is awake, alert and oriented 3, well developed and well nourished, normocephalic and atraumatic, lying in bed and in no acute distress. HEENT--PERRL, EOMI, mucous membranes and oropharynx dry. Neck--supple. No JVD. No bruits. Thyroid normal, trachea midline, no adenopathy. Heart--normal S1 and S2. No murmurs, rubs or gallops. Lungs--decreased breath sounds left base. No respiratory distress, no accessory muscle use. Abdomen--normal bowel sounds and soft. Nontender. Nondistended, no hernias or masses, no organomegaly. Extremities--no cyanosis or clubbing. No edema. There are good distal pulses b/l. Dermatologic--normal skin turgor, normal color, no abnormal lymph nodes, no rash. Neurologic--cranial nerves II through XII grossly intact. Rheumatologic--normal range of motion. Psychiatric--normal affect. Principal Diagnosis influenza, community acquired pneumonia Discharge Exam Constitutional: WD/WN, vitals as above Respiratory: normal respiratory effort decreased air movement at left lung base, no wheezes Cardiovascular: RRR, no murmur, no edema Gastrointestinal (Abdomen): normal bowel sounds, soft, nontender, no hepatosplenomegaly Skin: no rashes, warm and dry Psychiatric: A+Ox3, euthymic affect Discharge Data Allergies Allergy/AdvReac Type Severity Reaction Status Date / Time Cipro Allergy Severe SHORTNESS Verified 12/14/12 11:10 OF BREATH ciprofloxacin Allergy Severe SHORTNESS Verified 06/21/19 19:07 OF BREATH Iodinated Contrast Media AdvReac Mild DIARRHEA Verified 06/21/19 19:07 Consultations 06/21/19 18:31 ED Decision to Admit Stat 06/21/19 22:05 Consult Case Management - Discharge Planning Routine Ordered Studies 06/21/19 20:02 CT chest wo con Stat: 1. Consolidative left lower lobe infiltrate versus the possibility of an underlying mass lesion. 2. Follow-up CT study should be performed at a later date following appropriate treatment. 3. Minimal atelectasis right base. 4. Potential small superimposed infiltrative process right perihilar region. Hospital Course (1) Sepsis: 49 yo F no significant PMHx admitted for sepsis secondary to superimposed bacterial pneumonia in the setting of diagnosed influenza A. Sepsis (resolved): - Initially sepsis secondary to influenza A and superimposed bacterial pneumonia. - Lactate on admission 3.2 -> 1.5. Pt currently normotensive, afebrile. - Will treat pneumonia as below in outpatient setting. - F/u with PCP in 1-2 weeks. - Discussed her exercise regimen and to increase as tolerated. Community acquired pneumonia: - Left lower lobe consolidation, especially prominent on CT. - Deescalate antibiotics to Augmentin BID until 06/29/2019; Azithromycin daily until 06/26/2019. - Will require follow-up CT in about 2 months to verify resolution and ensure findings consistent with infectious process. Influenza A: - Pt on droplet precautions while admitted. - Completed Tamiflu 75 mg p.o. twice daily x5 full days. - Supportive care with OTC Tylenol/NSAIDs, decongestants in the outpatient setting. Discharged home with self care. (2) Influenza A: (3) PNA (pneumonia): Total Time Total Time Spent Total Time Spent (In Minutes): <30 Discharge Plan Discharge Items Patient Disposition: Home - Self-Care Reason For Visit: INFLUENZA A,PNEUMONIA Discharge Diagnosis: pneumonia Activity: Resume your previous activity Exercise/Sports: Gradually increase as tolerated Non-emergency contact: Primary Care Provider Call non-emergency contact if: your symptoms worsen and your temperature is above 101 Follow-up/Referrals: Kelton Maier DO [Primary Care Provider] - Diet: Regular Addtl Attending Provider Instructions: You were admitted to the hospital for low blood pressure, fevers, and high heart rates from your flu infection. We then found on your xray of your chest that you likely had a bacterial pneumonia. We started treating you with antibiotics, oxygen through the nasal cannula, and some steroids. You started to feel better and we felt safe to discharge you home with antibiotics you can take by mouth. Antibiotics -> we will continue you on two antibiotics, Augmentin and Azithromycin. Azithromycin is a pill you will take once a day starting this afternoon for four total days (Finish 06/26/2019). Augmentin is a pill you will take twice a day (one every 12 hours) starting this afternoon until they are complete. Both medications have been sent to [facility] on [facility]. Symptoms -> if you begin to feel more short of breath or start to get fevers over 100.[address] Maier's office right away. You will take some time to get back to completely normal. Sometimes it can take a month or two to get completely back to normal after a pneumonia. However, your symptom of shortness of breath should not get worse. Follow up -> It is important that you have a follow up at Dr. Maier's office within two weeks once you leave the hospital. You will need a CT scan of your chest 6-8 weeks after you are discharged to watch your pneumonia and make sure it gets better. Pending Studies at Discharge: No Stand-Alone Forms: My [facility], Smoking Cessation Medications and DC Order Prescriptions: New azithromycin 250 mg tablet 250 mg PO DAILY 4 Days Qty: 4 RF: 0 amoxicillin-pot clavulanate [Augmentin] 875-125 mg tablet 1 tab PO BID 6 Days Qty: 12 RF: 0 Discontinued oseltamivir 75 mg capsule 75 mg PO BID RF: 0 Discharge Orders: Discharge Order (Routine); Ordered 06/23/19 Ordered By: Kim Aguirre Admission Data Admit Date/Time: 06/21/19 20:21 Attending Provider: Phil Moreno Admit Provider: Fercho Azul Primary Care Provider: Kelton Maier Other Providers: Fercho Azul Other Interventions: Discharge Summary Assessment (RN) Last Done: 06/23/19 14:30 DC Date/Time DO NOT enter until pt leaves facility: 06/23/19 15:06 Supervising Physician Co-Signing Physician Notes I personally examined the patient and verified all han points of history and exam, discussed case, and agree with decision making with Dr Aguirre. Feeling better overall no new complaints feels up to going home. answered all questions to the best of my ability. Vitals noted, in general she is fatigued appearing but otherwise in no distress. HEENT normocephalic atraumatic mucous membranes are moist. Breathing is unlabored no accessory muscles good effort. no focal neuro deficits. Influenza complicated by secondary bacterial pneumonia with sepsis present on admissionall improving. finish course of antibiotics as Rx'd. PCP f/u. Resident Activity Tracking Resident Involvement: Resident Care Provided Care Provided: Adult Hospital Medicine
--- NOTE | 2019-06-23 21:06 | Billing Data ---
Date of Service June 23, 2019 Coding Level of Care Code 80683 OBS Care - Discharge
== END 2019-06-23 15:06 | disposition home or self-care (01) ==
LOC: ED 15:56 → 2S 15:56 → SUATTDRO 20:21 → 2S 21:31 → 4W 06-22 12:21